=== PATIENT | male | born 1965 | race Two or more races ===

== ENCOUNTER 2022-07-10 20:32 | Emergency (ER) | payer MEDICAID ==
[~2022-07-10] VITALS: Ht 152.4 cm; Wt 65.0 kg
[2022-07-10] MEDS ORDERED: BACL10TA PO (21:32)
[2022-07-10] MEDS ORDERED: GABA-1216 PO (21:32)
[2022-07-11 00:53] LABS: LYMPHOCYTES # (AUTO) 1.9 K/uL (1.0-4.8); MONOCYTES # (AUTO) 0.4 K/uL (0.1-1.0); NEUTROPHILS # (AUTO) 1.4 K/uL (1.8-7.7); NEUTROPHILS % (AUTO) 36.3 % (40.0-70.0); PLATELET COUNT (AUTO) 162 K/uL (150-450)
[2022-07-11 01:00] LABS: BASOPHILS % (AUTO) 1.5 % (0.0-2.0); EOSINOPHILS % (AUTO) 3.2 % (1.0-6.0); HEMATOCRIT 35.2 % (41-53); HEMOGLOBIN 12.5 g/dL (13.5-17.5); MEAN CORPUSCULAR HEMOGLOBIN 32.4 pg (26.0-34.0); MEAN CORPUSCULAR HGB CONC 35.5 G/dL (31.0-37.0); MEAN CORPUSCULAR VOLUME 91 fL (80-100); RED BLOOD CELL COUNT(AUTO) 3.85 MIL/uL (4.50-5.90); RED CELL DISTRIBUTION WIDTH 13.6 % (11.5-14.5)
[2022-07-11 01:04] LABS: ANION GAP 4 mmol/L (8-16); CALCIUM, TOTAL 8.1 mg/dL (8.8-10.5); CARBON DIOXIDE 29 mmol/L (22-29); CHLORIDE 103 mmol/L (98-107); CREATININE 0.74 mg/dL (0.60-1.30); GLUCOSE,RANDOM 116 mg/dL (70-110); POTASSIUM 3.2 mmol/L (3.5-5.1); SODIUM SERUM 136 mmol/L (136-145); UREA NITROGEN, BLOOD 17 mg/dL (7-18)
[2022-07-11 01:05] LABS: GLOMERULAR FILTR. RATE CALC > 60 mL/min (>60)
[2022-07-11 01:10] LABS: ALANINE AMINOTRANSFERASE 67 U/L (12-78); ALBUMIN 3.9 g/dL (3.4-5.0); ALKALINE PHOSPHATASE 104 U/L (46-116); BILIRUBIN,TOTAL 0.2 mg/dL (0.1-1.0); TOTAL PROTEIN, SERUM 7.1 g/dL (6.4-8.2)
[2022-07-11 01:29] LABS: ASPARTATE AMINOTRANSFERASE 33 U/L (15-37)
[2022-07-11] MEDS ORDERED: SODIUM CHLORIDE 0.9% 100 ML ONE (01:32)
[2022-07-11] MEDS ORDERED: IOHEXOL 350 MG/ML 75 ML VIAL ONE (01:33)
[2022-07-11] MEDS ORDERED: AMOX TR/POT CLAV 875 MG/125 MG TABLET PO ONE (03:45)
[2022-07-11] MEDS ORDERED: AMOX1TAB16 PO (04:42)
[2022-07-11 04:45] VITALS: BP 110/60
== END 2022-07-11 05:20 | disposition home or self-care (01) ==
LOC: EDBD 20:32 → EMS 20:32
DX: H05.011 Cellulitis of right orbit (principal); Z79.899 Other long term (current) drug therapy
CPT/HCPCS: 99285; 80053; 85025; 36415; 70481; Q9967; J7050

== ENCOUNTER 2023-12-09 12:07 | Emergency (ER) | payer MEDICAID ==
[~2023-12-09] VITALS: Ht 167.6 cm; Wt 73.2 kg
[~2023-12-09 12:07] MED LIST: AMOX1TAB16 PO; BACL10TA PO; GABA-1216 PO
[2023-12-09 12:15] VITALS: TEMP 98.5
[2023-12-09 12:22] VITALS: BP 125/82; PULSE 76; RESP 26; O2SAT 94
[2023-12-09] MEDS ORDERED: PERTUSS(ACELL),DIPH,TET VAC/PF 0.5 ML SYRINGE IM. ONE (12:30)
[2023-12-09] MEDS ORDERED: SODIUM CHLORIDE 0.9% 1,000 ML IV ONE (12:30)
[2023-12-09] MEDS ORDERED: BACL10TA PO (12:32)
[2023-12-09] MEDS ORDERED: GABA-534 PO (12:32)
[2023-12-09] MEDS ORDERED: OMEG-189 PO (12:32)
[2023-12-09] MEDS ORDERED: ATOR20TA65 PO (12:32)
[2023-12-09] MEDS ORDERED: FERR324T4 PO (12:32)
[2023-12-09] MEDS ORDERED: TAMS0.4C94 PO (12:32)
[2023-12-09] MEDS ORDERED: FOLI-130 PO (12:32)
[2023-12-09] MEDS ORDERED: CALC-1105 PO (12:32)
[2023-12-09] MEDS ORDERED: FINA5TAB41 PO (12:32)
[2023-12-09] MEDS ORDERED: AMIT25TA9 PO (12:32)
== END 2023-12-09 12:52 | disposition short-term general hospital (02) ==
LOC: EMS 12:07
DX: S29.9XXA Unspecified injury of thorax, initial encounter (principal); X58.XXXA Exposure to other specified factors, initial encounter; Y93.89 Activity, other specified; Y92.89 Other specified places as the place of occurrence of the external cause; Y99.8 Other external cause status
CPT/HCPCS: 99283; 96360; 90715; J7030